=== PATIENT | female | born 1985 | race Caucasian/White ===

== ENCOUNTER → 2020-07-16 13:30 | Outpatient (BNVA) | payer BC, SELFPAY | PROVIDERS: Family Provider Family Medicine; PCP Family Medicine; Visit Provider Obstetrics & Gynecology | DX: R87.611 Atypical squamous cells cannot exclude high grade squamous intraepithelial lesion on cytologic smear of cervix (ASC-H) (principal) | CPT/HCPCS: 88175; 88305 ==

== ENCOUNTER → 2021-07-20 13:30 | Outpatient (BNVA) | payer BC, SELFPAY | PROVIDERS: Family Provider Family Medicine; PCP Family Medicine; Visit Provider Obstetrics & Gynecology | DX: R87.611 Atypical squamous cells cannot exclude high grade squamous intraepithelial lesion on cytologic smear of cervix (ASC-H) (principal) | CPT/HCPCS: 87624 ==

== ENCOUNTER → 2021-09-28 13:05 | Outpatient (BNVA) | payer BC, SELFPAY | PROVIDERS: Family Provider Family Medicine; PCP Nurse Practitioner Family; Visit Provider Obstetrics & Gynecology | DX: R87.611 Atypical squamous cells cannot exclude high grade squamous intraepithelial lesion on cytologic smear of cervix (ASC-H) (principal) | CPT/HCPCS: 81025; 88305 ==

== ENCOUNTER → 2021-10-23 08:13 | Outpatient (BNVA) | payer BC, SELFPAY | PROVIDERS: Family Provider Family Medicine; PCP Nurse Practitioner Family; Visit Provider Obstetrics & Gynecology | DX: R89.6 Abnormal cytological findings in specimens from other organs, systems and tissues (principal) | CPT/HCPCS: 76830 ==

== ENCOUNTER → 2022-09-13 10:00 | Outpatient (BNVA) | payer BC, SELFPAY | PROVIDERS: Family Provider Family Medicine; PCP Nurse Practitioner Family; Visit Provider Obstetrics & Gynecology | DX: R87.610 Atypical squamous cells of undetermined significance on cytologic smear of cervix (ASC-US) (principal); R87.619 Unspecified abnormal cytological findings in specimens from cervix uteri; R87.810 Cervical high risk human papillomavirus (HPV) DNA test positive | CPT/HCPCS: 87624 ==

== ENCOUNTER → 2022-10-25 13:40 | Outpatient (BNVA) | payer BC, SELFPAY | PROVIDERS: Family Provider Family Medicine; PCP Nurse Practitioner Family; Visit Provider Obstetrics & Gynecology | DX: R87.610 Atypical squamous cells of undetermined significance on cytologic smear of cervix (ASC-US) (principal); R87.810 Cervical high risk human papillomavirus (HPV) DNA test positive | CPT/HCPCS: 81025; 88305; 88342 ==

== ENCOUNTER 2022-12-08 06:53 | Day surgery (SDC) | payer BC, SELFPAY ==
[2022-12-07 08:23] VITALS: BMI 46.3
[2022-12-07 08:42] LABS: Basophils # 0.1 10^3/uL (0.0-0.1); Basophils % 1.4 %; Eosinophils # 0.1 10^3/uL (0.0-0.8); Eosinophils % 1.7 %; Hematocrit 43.3 % (37.0-47.0); Hemoglobin 14.5 g/dL (11.5-15.3); Lymphocytes # 1.6 10^3/uL (0.8-4.8); Lymphocytes % 24.9 %; Mean Corpuscular HGB Conc 33.5 g/dL (30.0-36.0); Mean Corpuscular Hemoglobin 29.2 pg (28.0-34.0); Mean Corpuscular Volume 87.1 fl (81-99); Mean Platelet Volume 9.7 fL (7.4-10.4); Monocytes # 0.5 10^3/uL (0.2-0.9); Monocytes % 7.7 %; Neutrophils # 4.22 10^3/uL (1.8-7.7); Nucleated Red Blood Cells % 0 %; Platelet Count 268 10^3/cmm (130-400); Red Blood Count 4.97 10^6/uL (4.1-5.3); Red Cell Distribution Width 11.4 % (12.1-15.1); White Blood Count 6.6 10^3/uL (4.0-10.0)
--- NOTE | 2022-12-07 08:44 | ANES.PREANE2 ---
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 Operation Date: 12/08/22 08:20 Proposed Procedures p [Cervical cone biopsy [id number],R87.613(Not Applicable) - Macho Kimble MD Familial anesthetic complications: None Social No alcohol and No tobacco Exam alert, oriented x 3, clear to auscultation bilaterally and regular rate & rhythm Airway Mallampati: Class III Dentition: full Metabolic Morbid Obesity Neuropsych Anxiety (patient tearful d/t anxiety over fears of not waking up) Anesthetic Plan ASA status: 2 Anesthesia: General Risk of > 500 ml blood loss (7ml/kg in children): No Medications/Allergies Home Medications Medication Instructions Recorded Confirmed Last Taken Type bupropion HCl 75 mg tablet 150 mg PO DAILY 09/28/21 12/07/22 12/07/22 History multivitamin with minerals 1 tab PO DAILY 09/13/22 12/07/22 12/07/22 History (Hair,Skin and Nails tablet) loratadine 10 mg tablet 10 mg PO DAILY allergies #30 tabs 11/17/22 12/07/22 12/07/22 Rx Allergies Allergy/AdvReac Type Severity Reaction Status Date / Time No Known Allergies Allergy Verified 12/07/22 08:20 [facility] Anesthesia Medical History (Updated 11/17/22 @ 07:27 by Eliu Ventura MD) Acute allergic conjunctivitis of left eye Allergic rhinitis due to allergen Surgical History History of tonsillectomy and adenoidectomy (~2001) Family History Grandmother Heart disease maternal great Hypertension Maternal Hypercholesteremia Maternal Mother Heart disease Hypertension Hypercholesteremia Family/Other Heart disease maternal aunt Hypertension maternal aunt Hypercholesteremia maternal aunt Grandfather Colon cancer Paternal--dx age 64 Denies family history of Ovarian cancer Breast cancer Uterine cancer Thyroid disease Stroke Female Reproductive History Date of last menstrual period: 11/11/22 Data Anesthesia 12/07/22 08:27 12/07/22 08:27 Short CBC 12/07/22 Range/Units 08:27 WBC 6.6 (4.0-10.0) 10^3/uL Hgb 14.5 (11.5-15.3) g/dL Hct 43.3 (37.0-47.0) % MCV 87.1 (81-99) fl Plt Count 268 (130-400) 10^3/cmm Neut % (Auto) 64.0 % Neut # (Auto) 4.22 (1.8-7.7) 10^3/uL Cardiac Studies: No Data to Display
[2022-12-07 09:06] LABS: Alanine Aminotransferase 11 U/L (0-33); Albumin Level 3.9 g/dL (3.5-5.2); Alkaline Phosphatase 60 U/L (35-105); Anion Gap 13.2 (5-19); Aspartate Amino Transferase 11 U/L (0-32); Blood Urea Nitrogen 11 mg/dL (6-20); Calcium 8.1 mg/dL (8.5-10.5); Carbon Dioxide 24 mmol/L (22-29); Chloride 107 mmol/L (98-107); Globulin 2.5 g/dL (1.3-4.6); Glomerular Filtration Rate 94.2 mL/min (90-130); Glucose 87 mg/dL (65-115); Osmolality Calculated 289 mOsm/kg (285-295); Potassium 4.2 mmol/L (3.5-5.1); Sodium 140 mmol/L (136-145); Total Bilirubin 0.4 mg/dL (0.15-1.2); Total Protein 6.4 g/dL (6.6-8.7)
[2022-12-07 09:08] LABS: OR HCG Qualitative Urine Negative (Negative)
[2022-12-08] VITALS (11 sets, daily range): BP systolic 118–141; BP diastolic 56–87; PULSE 74–84; RESP 12–18; TEMP 36.2–36.7; O2SAT 96–100
[2022-12-08] MEDS: sodium chloride 0.9% 500 ML IV (07:22)
[2022-12-08] MEDS: scopolamine 1.5 Patch 1 PATCH TRANSDERMA (07:29)
[2022-12-08] MEDS: sodium chloride 0.9% 1,000 ML 30 ML IV (08:17)
--- NOTE | 2022-12-08 08:17 | W.PM.OPSUD ---
Surgery/Procedure H&P Update DATE OF PROCEDURE: December 08, 2022 DATE H&P PERFORMED: 12/06/22 H&P UPDATE INFORMATION: I have reviewed H&P completed within last 30 days, I have examined patient prior to procedure and No changes to prior documentation PREOP DIAGNOSIS: High grade squamous intraepithelial lesion PLANNED PROCEDURE: Operation Date: 12/08/22 08:20 Proposed Procedures p [Cervical cone biopsy [id number],R87.613(Not Applicable) - Macho Kimble MD
[2022-12-08] MEDS: ceFAZolin 3,000 MG in sodium chloride 0.9% (100 ml) 100 ML 200 MG IV (08:38)
--- NOTE | 2022-12-08 08:38 | P.ANESUD_ITS ---
Pre-Anesthetic Update Pre-Anesthetic Assessment: Date of Surgery/Procedure: 12/08/22 Preop Margot gnosis: High grade squamous intraepithelial lesion Proposed Procedure: Operation Date: 12/08/22 08:20 Proposed Procedures p [Cervical cone biopsy [id number],R87.613(Not Applicable) - Macho Kimble MD Any changes to Pre-Anesthetic Assessment?: No Last Intake: Intake Last Liquid Date 12/07/22 Last Liquid Time 19:30 Last Solid Date 12/07/22 Last Solid Time 19:30 Labs Last 48hrs: Short CBC 12/07/22 Range/Units 08:27 WBC 6.6 (4.0-10.0) 10^3/ uL Hgb 14.5 (11.5-15.3) g/dL Hct 43.3 (37.0-47.0) % MCV 87.1 (81-99) fl Plt Count 268 (130-400) 10^3/c mm Neut % (Auto) 64.0 % Neut # (Auto) 4.22 (1.8-7.7) 10^3/u L BMP 12/07/22 08:27 Sodium 140 Potassium 4.2 Chloride 107 Carbon Dioxide 24 BUN 11 Creatinine 0.7 Glucose 87 Calcium 8.1 L Liver Function 12/07/22 Range/Units 08:27 Total Bilirubin 0.4 (0.15-1.2) mg/dL AST 11 (0-32) U/L ALT 11 (0-33) U/L Alkaline Phosphata se 60 (35-105) U/L Albumin 3.9 (3.5-5.2) g/dL Blood Bank 12/07/22 08:27 Blood Type A Positive Rho(D) Type Positive Antibody Screen Negative Vitals: Temperature 97.4 F L 12/08/22 07:10 Temperature Source Temporal Artery S can 12/08/22 07:10 Pulse Rate 77 12/08/22 07:10 Respiratory Rate 16 12/08/22 07:10 Blood Pressure 123/84 12/08/22 07:10 Blood Pressure Maryuri n 97 12/08/22 07:10 Pulse Oximetry 98 12/08/22 07:10 Oxygen Delivery Me thod 12/08/22 07:10 Exam: Pre-Anes Outpt Exam: alert, oriented x 3, clear to auscultation bilaterally and regular rate & rhythm Cardiac Studies: No Data to Display
[2022-12-08] MEDS: lidocaine-epi 2% 20 mL INJ INJECTION (09:05)
--- NOTE | 2022-12-08 09:25 | P.OP_ITS ---
Operative Report Date of procedure: December 08, 2022 Pre-op diagnosis: Preop Diagnosis High grade squamous intraepithelial lesion Post-op diagnosis: same Procedure done: cone biopsy Specimens removed/disposition: Cone biopsy Surgeon: Macho Kimble MD Estimated blood loss (mL): 5 IV fluids (mL): 300 Complications: None Procedure: After informed consent, the patient was taken to the operating room where general anesthesia was administered without difficulty. After administration of general anesthesia, the patient was placed in the dorsal lithotomy position, and prepped and draped in the usual sterile fashion. A time-out procedure was p erformed. The patient was examined under anesthesia and found to have a normal uterus with normal adnexa. A weighted speculum was then placed in the patient's vagina and the anterior lip of the cervix grasped with the singed toothed tenaculum A uterine sound was then advanced into the cervix to determine its direction and length. The decending cervical branchs of the uterine arteries were ligated with 2-0 Vicryl bilaterally at the level of the internal os. Attention was then turned to the cervix where it was stain with Lugol?s solution to hightlight the lesion. The paracervical area was then circumferentially infiltrated using Lidocaine 1% with epinephrine. A Mobilygen Cone Biopsy Excisor was used to cut the cone biopsy in circular fashion and following removal of the specimen a suture was placed at the 12 o?clock location and fixed in formalin. The Sturmdorf suture with 3-O Vycril was applied. Bleeding was minimal. The patient tolerated the procedure well, sponge, lap and needle counts were correct times two She was taken to the recovery room in good condition.
--- NOTE | 2022-12-08 09:30 | PC.NURSE ---
Addendum entered by Sheree Garcia 12/08/22 09:36: Pt arrived to PACU, awake, oral airway removed, pt tolerated well. Original Note: Pt arrived to PACU,
--- NOTE | 2022-12-08 13:09 | ANE.PACU2 ---
Inpatient post-anesthesia follow up: Airway intact: Yes Vital signs: Temperature 98.0 F Pulse Rate 75 Respiratory Rate 18 Blood Pressure 123/78 Pulse Oximetry 100 Oxygen Delivery Me thod Room Air Oxygen Flow Rate Fraction of Inspir ed Oxygen Hydration adequate: Yes Nausea and vomiting: No Pain level: 1 Mental status: Baseline
[2022-12-08 19:42] LABS: Add Urine Microscopic? NO; Charge for UA Resulting for Rev
[2022-12-08 20:00] LABS: Bilirubin Urine Neg (Negative); Blood Urine Neg (Negative); Glucose Urine UA Norm (Normal); Ketones Urine Negative (Negative); Leukocyte Esterase Urine Negative (Negative); Nitrate Urine Negative (Negative); Protein Urine Neg (Negative); Specific Gravity, Urine 1.005 (1.005-1.030); Urine Appearance Clear (CLEAR); Urine Color Yellow (Yellow); Urobilinogen Urine Norm (Negative); pH Urine 7 (5-7)
== END 2022-12-08 10:40 | disposition home or self-care (01) ==
PROVIDERS: PCP Nurse Practitioner Family; Visit Provider Obstetrics & Gynecology
PROC: 0UB97ZZ Excision of Uterus, Via Natural or Artificial Opening (ICD-10-PCS; CPT 57520; principal; 2022-12-08 08:10)
DX: R87.613 High grade squamous intraepithelial lesion on cytologic smear of cervix (HGSIL) (principal); R87.810 Cervical high risk human papillomavirus (HPV) DNA test positive; E66.01 Morbid (severe) obesity due to excess calories; Z68.42 Body mass index [BMI] 45.0-49.9, adult; F41.9 Anxiety disorder, unspecified
CPT/HCPCS: 57520; 36415; 80053; 81003; 81025; 84703; 85025; 86850; 86900; 88307; 88342; J1100; J2250; J2405; J2704; J3010; J7030; J7040

== ENCOUNTER → 2023-02-15 07:53 | Outpatient (BNVA) | payer BC, SELFPAY | PROVIDERS: PCP Nurse Practitioner Family; Visit Provider Podiatrist Foot & Ankle Surgery | DX: M72.2 Plantar fascial fibromatosis (principal); M24.572 Contracture, left ankle | CPT/HCPCS: 73630 ==

== ENCOUNTER → 2023-11-04 09:50 | Outpatient (BNVA) | payer BC, SELFPAY | PROVIDERS: PCP Nurse Practitioner Family; Visit Provider Obstetrics & Gynecology | DX: Z12.4 Encounter for screening for malignant neoplasm of cervix (principal) | CPT/HCPCS: 88175 ==

== ENCOUNTER → 2023-12-16 11:14 | Outpatient (BNVA) | payer BC, SELFPAY | PROVIDERS: PCP Family Medicine; Visit Provider Family Medicine | DX: Z13.6 Encounter for screening for cardiovascular disorders (principal) | CPT/HCPCS: 80053; 80061; 84443; 85025 ==

== ENCOUNTER 2024-07-04 13:35 | Outpatient (CLI) | payer BC, SELFPAY ==
--- NOTE | 2024-07-04 13:42 | XRR_ITS ---
PROCEDURE INFORMATION: Exam: XR Lumbosacral Spine Exam date and time: 07/04/2024 1:54 PM Age: 38 years old Clinical indication: Low back pain; Additional info: Right hip pain TECHNIQUE: Imaging protocol: Radiologic exam of the lumbosacral spine. Views: 2 or 3 views. 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 Facet arthropathy can be seen at multiple levels. No fracture or subluxation noted. Soft tissues: Unremarkable. XR/XR lumbar spine 2-3V* [id number] IMPRESSION: No acute findings.
--- NOTE | 2024-07-04 13:42 | XRR_ITS ---
PROCEDURE INFORMATION: Exam: XR Right Hip Exam date and time: 07/04/2024 1:54 PM Age: 38 years old Clinical indication: Hip pain; Patient HX: Pain while running, popping, burning in lateral right hip 2-3 weeks; Additional info: Right hip pain TECHNIQUE: Imaging protocol: Radiologic exam of the right hip. Views: 1 view hip with pelvis when performed. COMPARISON: CR XR lumbar spine 2-3V* [id number] 07/04/2024 1:54 PM FINDINGS: Bones/joints: Unremarkable. No acute fracture. Soft tissues: Unremarkable. XR/XR hip RT 2-3V wo/w pel* [id number] IMPRESSION: No acute findings.
== END 2024-07-04 13:36 | disposition home or self-care (01) ==
PROVIDERS: PCP Nurse Practitioner Family; Visit Provider Nurse Practitioner Family
DX: M25.551 Pain in right hip (principal)
CPT/HCPCS: 72100; 73502

== ENCOUNTER → 2024-09-04 09:20 | Outpatient (BNVA) | payer BC, SELFPAY | PROVIDERS: PCP Nurse Practitioner Family | DX: J02.9 Acute pharyngitis, unspecified (principal) | CPT/HCPCS: 87071; 87880 ==

== ENCOUNTER → 2024-11-06 15:48 | Outpatient (BNVA) | payer BC, SELFPAY | PROVIDERS: PCP Nurse Practitioner Family; Visit Provider Nurse Practitioner Women's Health | DX: N87.1 Moderate cervical dysplasia (principal) | CPT/HCPCS: 87624 ==

== ENCOUNTER → 2024-12-04 15:14 | Outpatient (BNVA) | payer BC, SELFPAY | PROVIDERS: PCP Nurse Practitioner Family; Visit Provider Family Medicine | DX: Z13.6 Encounter for screening for cardiovascular disorders (principal) | CPT/HCPCS: 80053; 80061; 84443; 85025 ==

== ENCOUNTER → 2024-12-06 13:01 | Outpatient (BNVA) | payer BC, SELFPAY | PROVIDERS: PCP Nurse Practitioner Family; Visit Provider Obstetrics & Gynecology | DX: R87.619 Unspecified abnormal cytological findings in specimens from cervix uteri (principal) | CPT/HCPCS: 81025; 87624; 88305 ==

== ENCOUNTER → 2025-03-28 14:36 | Outpatient (BNVA) | payer BC, SELFPAY | PROVIDERS: PCP Nurse Practitioner Family; Visit Provider Obstetrics & Gynecology | DX: Z12.4 Encounter for screening for malignant neoplasm of cervix (principal) | CPT/HCPCS: 87624 ==